=== PATIENT | female | born 2000 | race Hispanic/Latino ===

== ENCOUNTER 2024-07-20 16:53 | Emergency (ER) | payer OTHER ==
[~2024-07-20] VITALS: Ht 157.5 cm; Wt 48.5 kg
[2024-07-20 16:59] VITALS: PULSE 70; RESP 16; TEMP 98.3; O2SAT 100
== END 2024-07-20 17:27 | disposition home or self-care (01) ==
LOC: ER 17:18
DX: R14.0 Abdominal distension (gaseous) (principal); K59.00 Constipation, unspecified; R10.32 Left lower quadrant pain
CPT/HCPCS: 99282